=== PATIENT | male | born 1935 | race African-American/Black ===

== ENCOUNTER 2019-01-21 04:58 | Inpatient (IN) | payer OTHER ==
[2019-01-21] VITALS (25 sets, daily range): BP systolic 136–187; BP diastolic 71–105
[~2019-01-21] VITALS: Ht 172.7 cm; Wt 81.4 kg
--- NOTE | 2019-01-21 04:59 | NUR ---
BY EMS TO ROOM 10
--- NOTE | 2019-01-21 05:00 | NUR ---
PT. TO ROOM 10 VIA EMS, C/O SOB X 3 WEEKS. WHEEZES NOTED BILATERALLY. O2 SAT ON RA 87%. SUBSTERNAL RETRACTIONS NOTED. MD AT BEDSIDE. O2 2 LIT/NC APPLIED O2 SAT NOW 94%. BP 199/138 HR 134. RESP. 34. ABG OBTAINED.
--- NOTE | 2019-01-21 05:15 | NUR ---
IV MS, IV LASIX AND IV CARDENE GTT GIVEN PER MD ORDER.
--- NOTE | 2019-01-21 05:20 | NUR ---
PT. PLACED ON BIPAP PER ABG RESULTS.
[2019-01-21] MEDS ORDERED: TRADJENTA5 MG PO (05:26)
[2019-01-21] MEDS ORDERED: METFORMIN850 MG PO (05:26)
[2019-01-21] MEDS ORDERED: EQ ASPIRIN81 MG PO (05:27)
[2019-01-21] MEDS ORDERED: HYDROCHLOROT12.5 M1 PO (05:27)
[2019-01-21] MEDS ORDERED: COZAAR50 MG PO (05:28)
[2019-01-21] MEDS ORDERED: COREG3.125 MG PO (05:28)
[2019-01-21] MEDS ORDERED: ALDOMET250 MG PO (05:29)
--- NOTE | 2019-01-21 05:30 | NUR ---
BP 170/104 HR 118, MD AWARE.
[2019-01-21 05:41] LABS: HEMATOCRIT 38.7 % (39.0-50.0); HEMOGLOBIN 12.2 g/dl (14.0-18.0); IMMATURE GRANULOCYTES 0.6 % (0.0-5.0); MEAN CELL VOLUME 96.5 fL CALC (80.0-100.0); MEAN CORPUSCULAR HGB 30.4 pG CALC (26.0-32.0); MEAN CORPUSCULAR HGB CONC 31.5 g/L CALC (32.0-36.0); NEUT# 12.66 thou/uL (1.82-7.42); RED BLOOD COUNT 4.01 mill/uL (4.70-6.10); RED CELL DISTRI WIDTH 13.3 % (11.5-15.5)
--- NOTE | 2019-01-21 05:45 | NUR ---
BP 155/91 HR 113.
[2019-01-21 06:15] LABS: URINE BILIRUBIN - DIPSTICK NEGATIVE (NEGATIVE); URINE BLOOD DIPSTICK NEGATIVE (NEGATIVE); URINE COLOR YELLOW; URINE GLUCOSE - DIPSTICK NEGATIVE (NEGATIVE); URINE KETONE NEGATIVE (NEGATIVE); URINE LEUK ESTERASE NEGATIVE (NEGATIVE); URINE NITRITE - DIPSTICK NEGATIVE (Negative); URINE PROTEIN - DIPSTICK NEGATIVE (NEG-TRACE); URINE UROBILINOGEN - DIPSTICK 0.2 E.U./dL (0.2)
[2019-01-21 06:20] LABS: ALBUMIN 4.3 g/dL (3.2-5.0); BILIRUBIN, TOTAL 0.6 mg/dL (0.0-1.4); CREATININE 1.8 mg/dL (0.7-1.3); POTASSIUM 4.4 mmol/l (3.5-5.1); TOTAL PROTEIN 7.4 g/dL (6.3-8.2)
--- NOTE | 2019-01-21 06:50 | NUR ---
REPORT REC'D FROM OF GOING NURSE, CARE ASSUMED, PT RESTING ON STRECTHER CURRENTLY ON BI PAP SEE FLOWSHEET FOR SETTINGS, NO S/S OF DISTRESS OR DISCOMFORT NOTED, GUARDS AT BEDSIDE AND SHACKLES IN PLACE EXTREMITY CIRCULATION WNL NO CHAFING OR REDENSS NOTED AT RESTRAINT SITES. BILATERAL AC IV SITES INTACT WITH IVF AND CARDENE INFUSING INTO L AC SITE, SEE INTERVENTIONS FOR B/P. URINAL AT BEDSIDE EMPITED OF 400 ML CLEAR PALE YELLOW URINE, COMFORT MEASURES PROVIDED REOSITIONED FOR COMFORT, AND CALL FATIMA WITHIN REACH, EDUCATED REGARDING ADMISSION AND POC FOR SAID ADMISSION, WILL CONTINUE TO MONITOR
--- NOTE | 2019-01-21 07:01 | NUR ---
BIPAP PLACED STANDBY. PT NOW ON 2L NC.
--- NOTE | 2019-01-21 07:38 | NUR ---
PT OFF BIPAP ON NC2L SEE FLOWSHEET FOR DETAILS, TOELRATING NC W/O INCIDENT, NO SOB OR DISTRESS NOTED, GUARDS REMAIN AT SIDE, IV ABT INFUSINGAND PT INSTRUCTED REGARDING REASON FOR ADMINISTRATION, EXPECTATIONS AND POTENTIAL SIDE EFFECTS, ALL QUESTIONS ANSWERED, WILL CONTINUE TO MONITOR.
--- NOTE | 2019-01-21 08:09 | NUR ---
PT RESTING CONTINUES TO USE URINAL W/O INCIDENT, GUARDS REMAIN AT BEDSIDE, PT COOPERATIVE NO S/S OF DISTRESS CONTINUES TO TOLERATE NC WITHOUT INCIDENT.
--- NOTE | 2019-01-21 08:40 | NUR ---
EMPTIED URINAL OF 400 ML CLEAR YELLOW URINE
--- NOTE | 2019-01-21 08:55 | NUR ---
TO CT VIA STRECTHER WITH 2 NURSES AND TELE ALONG WITH GUARDS.
--- NOTE | 2019-01-21 10:10 | NUR ---
PT TRANSPORTED TO ICU BY ICU STAFF ON TELE
--- NOTE | 2019-01-21 10:15 | NUR ---
PT ADMITTED TO ICU BED 1 FROM ED FOR CP, HTN, SOB. PT TRANSFERRED VIA STRETCHER WITH CARDENE GTT @5MG/HR TO EMS SITE @LAC. 20GTO RAC/SL. PT A&OX3, ABLE TO MAKE NEEDS KNOWN , URINAL AT BEDSIDE, PT DENIES CP AT THIS TIME. PT REMAIN ST ON TELEMETRY ,HR 105. B/P 187/105, SA02@99% ON 2LPM VIA N/C. RESPIRATIONS 26, SHALLOW, EVEN/UNLABORED. LS CLEAR THROUHGOUT. ABDOMEN HARD, DISTENDED, TENDER WHEN PALPATED. PT STATED LBM 01/21/19. PT ORIENTED TO UNIT, ROOM, CALL LIGHT SYSTEM. GUARDS X2 AT BEDSIDE. CALL LIGHT IN REACH. WILL MONITOR.
--- NOTE | 2019-01-21 11:00 | NUR ---
MICHAEL BACA AT BEDSIDE FOR ASSESSMENT AND DAO SIMPSON PLAN OF CARE.
--- NOTE | 2019-01-21 11:15 | NUR ---
PT VOIDED 100ML IN URINAL, BLADDER SCAN PERFORMED, SHOWS >400 ML OP IN BLADDER POST VOID. MICHAEL BACA AWARE.
--- NOTE | 2019-01-21 11:30 | NUR ---
16FR FRANK CATHETER INSERTED USING STERILE TECHNIQUE, WITH 500ML PALE CLEAR YELLOW URINE OP IMMEDIATE RETURN NOTED. PT TOLERATED WELL, SECURED TO L THIGH.
--- NOTE | 2019-01-21 11:45 | NUR ---
RT AT BEDSIDE FOR TX
--- NOTE | 2019-01-21 12:00 | NUR ---
PT REPOSITIONED SELF, LUNCH TRAY SET UP. GUARDSX2 REMAIN AT BEDSIDE.
--- NOTE | 2019-01-21 12:45 | NUR ---
PT REQUESTING SOMETHING FOR INDIGESTION, MICHAEL BACA NOTIFIED OF REQUEST.
--- NOTE | 2019-01-21 13:00 | NUR ---
MARU DORAN FROM DOC CALLED FOR UPDATE, UPDATE GIVEN.
--- NOTE | 2019-01-21 13:25 | NUR ---
DR. BO AND MICHAEL BACA AT BEDSIDE FOR ASSESSMENT AND TO DISCUSS PLAN OF CARE, NEW ORDERS RECIEVED.
--- NOTE | 2019-01-21 14:35 | NUR ---
TRANSPORTED PT FROM ICU BED 1 TO PACU BED 6. PT TOLERATED TRANSFER WELL.
--- NOTE | 2019-01-21 15:02 | NUR ---
INITIATED CARDENE DRIP 2.5MG/HR. B/P 152/90
--- NOTE | 2019-01-21 15:48 | NUR ---
PT RESTING IN BED WITH HOB UP, EYES CLOSED. FRANK REMAINS PATENT DRAINING TO BSD VIA GRAVITY. GUARDS REMAIN AT BEDSIDE. WILL MONITOR.
--- NOTE | 2019-01-21 16:59 | NUR ---
PT ACCU CHECK 284, PT REFUSED INSULIN, STATED " AIN'T NOBOBY GOING TO GIVE ME INSULIN, THE LAST TIME I WAS GIVEN IT I ALMOST ." PT EDUCATED THAT THE COMA WAS HYPOGLYCEMIC, NOT ALLERGIC TO INSULIN AND METFORMIN WAS NOT AN OPTION DUE TO HIS KIDNEY FUNCTION. PT STATED, "I DONT CARE, I AM NOT TAKING ANY INSULIN EVER." DR. BO NOTIFIED OF PT REFUSAL.
--- NOTE | 2019-01-21 17:25 | NUR ---
DIETARY ON UNIT, DINNER TRAY SET UP. PT REFUSED, PORK. DIETARY BRINGING PT TURKEY SANDWICH.
--- NOTE | 2019-01-21 17:40 | NUR ---
LAB AT BEDSIDE FOR BLOOD DRAW.
--- NOTE | 2019-01-21 18:03 | NUR ---
JAVI FROM DIETARY DELIVERED TURKEY SANDWICH. PT SITTING UP IN BED, CONTINUES ON CARDENE GTT, MONIKA REMAINS PATENT, DRAINING TO BSD VIA GRAVITY. PT OFFERS NO COMPLAINTS AT THIS TIME. CALL LIGHT IN REACH. WILL MONITOR.
--- NOTE | 2019-01-21 19:44 | NUR ---
PT AWAKE RESTING IN BED. PT IS PLEASANT AND COOPERATIVE. TWO GUARDS AT BEDSIDE. PT IS CUFFED TO THE BED. ALERT AND ORIENTED X3. RESP EVEN AND UNLABORED. O2 N/C ON AT 2L. PT DENIES ANY DIFFICULTY BREATHING. SKIN IS WARM AND DRY. VSS. PT IS AFEBRILE. TELE ST HR 107. B/P 153/81. O2 SAT 99% ON 2L N/C. LUNGS CLEAR BILAT. ABD IS SOFT AND NONDISTENDED WITH BOWEL SOUNDS PRESENT IN ALL FOUR QUADS. FRANK IS PATENT DRAINING CLEAR PALE URINE. PT HAS NO LOWER EXT EDEMA NOTED. PEDAL PULSES PALPATED BILAT. HEPLOCK PATENT IN RT A.C. NO REDNESS OR TENDERNESS AT SITE. IV SITE IN LEFT A.C. CARDENE GTT AT 5MG OR 50ML/HR. NSS AT KVO. PT DENIES ANY PAIN OR DISCOMFORT. WILL CONTINUE TO CLOSELY MONITOR. CALL FATIMA WITHIN REACH. FREQUENT ROUNDS MADE.
--- NOTE | 2019-01-21 20:30 | NUR ---
DR BO CALLED AND INFORMED PTS ACCUCHECK IS 421 AND PT REFUSES ANY INSULIN COVERAGE. PER DR BO DUE TO PT REFUSING ANY INSULIN GIVE GLYBURIDE 5MG P.O X1 DOSE NOW AND IS AWARE OF SULFA ALLERGY. ORDER RECEIVED WITH VERBAL READ BACK CONFIRMATION AND CHARTED. ORDER FAXED TO . PT INFORMED OF NEW ORDER RECEIVED AND AGREES TO TAKE GLYBURIDE. RESP EVEN AND UNLABORED. PT OFFERS NO COMPLAINTS. IV CARDENE AT 5MG. IV SITE PATENT. MONITOR READING ST HR 108. FREQUENT ROUNDS MADE. TWO GUARDS AT BEDSIDE. CALL FATIMA WITHIN REACH
--- NOTE | 2019-01-21 21:40 | NUR ---
RESTING IN BED TALKING WITH GUARDS. VSS. OFFERS NO COMPLAINTS. CALL FATIMA WITHIN REACH.
--- NOTE | 2019-01-21 22:15 | NUR ---
PT AWAKE RESTING IN BED TALKING TO GUARDS. IV SITE PATENT. CARDENE GTT REMAINS AT 5MG. FRANK IS PATENT. RESP EVEN AND UNLABORED. FREQUENT ROUNDS MADE. CALL FATIMA WITHIN REACH.
--- NOTE | 2019-01-21 23:44 | NUR ---
ACCUCHECK 307. B/P 150/88, HR 101. PT OFFERS NO COMPLAINTS. CALL FATIMA WITHIN REACH.
[2019-01-22] VITALS (21 sets, daily range): BP systolic 115–155; BP diastolic 61–91
--- NOTE | 2019-01-22 01:04 | NUR ---
PT RESTING IN BED WITH EYES CLOSED. O2 N/C ON AT 2L. B/P 122/67, HR 90'S SR. IV CARDENE GTT REMAINS AT 5MG. MONIKA IS PATENT . TWO GUARDS AT BEDSIDE. FREQUENT ROUNDS MADE. CALL FATIMA WITHIN REACH.
--- NOTE | 2019-01-22 01:35 | NUR ---
B/P 115/61, MONITOR READING SR HR 90. CARDENE GTT DECREASED FROM 5MG/HR TO 2.5MG/HR. IV SITE PATENT. PT IS SLEEPING. WILL CONTINUE TO CLOSELY MONITOR. VS SET FOR Q 15MIN. CALL FATIMA WITHIN REACH. FREQUENT ROUNDS MADE.
--- NOTE | 2019-01-22 02:09 | NUR ---
PT RESTING IN BED WITH EYES CLOSED. B/P 131/80, HR 89. MONITOR SR. IV CARDENE GTT REMAINS AT 2.5MG/HR OR 25ML/HR. IV SITE PATENT. OFFERS NO COMPLAINTS. CUFFED TO BED. TWO GUARDS AT BEDSIDE. CALL FATIMA WITHIN REACH.
--- NOTE | 2019-01-22 04:15 | NUR ---
PT RESTING IN BED WITH EYES CLOSED. RESP EVEN AND UNLABORED. O2 AT 2L N/C. NO DISTRESS NOTED. ASSESSMENT UNCHANGED. FRANK IS DRAINING CLEAR PALE YELLOW URINE. MONITOR READING SR HR 80'S. O2 SAT 98%. B/P IS STABLE. IV SITE PATENT. GUARDS AT BEDSIDE AND PT REMAINS CUFFED TO THE BED. CARDENE GTT REMAINS AT 2.5MG/HR WITH NSS AT 10CC/HR. FREQUENT ROUNDS MADE. CALL FATIMA WITHIN REACH.
--- NOTE | 2019-01-22 06:04 | NUR ---
PT AWAKE. B/P 133/78. MONITOR SR HR 88. CARDENE TITRATED OFF AT THIS TIME. NSS AT O. WILL CONTINUE TO CLOSELY MONITOR. CALL FATIMA WITHIN REACH.
--- NOTE | 2019-01-22 07:10 | NUR ---
pt awake in bed; no apparent distress noted; pt offers no complaints; assessment completed at this time; pt alert and oriented; denies pain; no n/v noted; resp even and unlabored; no sob noted; lungs clear, crackles bilat bases; skin color wnl; o2 per nc at 2L; no cough noted; hr reg; weak pedal pulses; no edema noted; sr on monitor; abd soft with bs present; no bm noted per selling underwriter; vargas to gravity draining clear yellow urine; #20 flushed and saline locked to rac; #18 ems site patent to lac with ns infusing at kvo; cardene remains on hold; plan of care/ am meds explained; accucheck 189; insulin refused; correctional officers x2 present at bedside; pt cuffed to bed via left ankle; call light within reach; will continue to monitor
[2019-01-22 07:28] LABS: HEMATOCRIT 34.9 % (39.0-50.0); HEMOGLOBIN 11.7 g/dl (14.0-18.0); MEAN CELL VOLUME 91.6 fL CALC (80.0-100.0); MEAN CORPUSCULAR HGB 30.7 pG CALC (26.0-32.0); MEAN CORPUSCULAR HGB CONC 33.5 g/L CALC (32.0-36.0); RED BLOOD COUNT 3.81 mill/uL (4.70-6.10); RED CELL DISTRI WIDTH 13.2 % (11.5-15.5)
--- NOTE | 2019-01-22 08:00 | NUR ---
awake in bed; offers no complaints; no apparent distress noted; iv patent; no redness or edema noted at site; st on monitor; vargas to gravity; o2 per nc; call light within reach; will continue to monitor
[2019-01-22 08:05] LABS: CREATININE 1.7 mg/dL (0.7-1.3); POTASSIUM 4.2 mmol/l (3.5-5.1)
--- NOTE | 2019-01-22 08:47 | NUR ---
Dr Ortiz present at bedside to assess pt and discuss plan of care
--- NOTE | 2019-01-22 10:20 | NUR ---
awake in bed; conversing with [facility] staff; no apparent distress noted; pt offers complaints; iv patent with ns infusing at kvo; vargas to gravity; st on monitor; pt offers no complaints; call light within reach; will continue to monitor
--- NOTE | 2019-01-22 11:50 | NUR ---
report called to Salome Villasenor LPN; pt to transfer to med surg 278; correctional officers x2 at bedside
--- NOTE | 2019-01-22 11:55 | NUR ---
pt transferred to med surg 278 via bed in stable condition; bedside update provided to Salome Villasenor RN
--- NOTE | 2019-01-22 11:56 | NUR ---
PT ARRIVED TO MED/SURG ROOM 278 IN STABLE CONDITION VIA HOSPITAL BED ACCOMPANIED BY NILAMRN AND X2 GUARDS FROM BRIANDA CORROECTIONAL,LEFT ANKLE SHACKLED TO BED;PT A&O X3,ORIENTED TO ROOM AND CALL LIGHT SYSTEM;VS AND WT TO BE OBTAINED BY TESS COBB;ASSESSMENT COMPLETED;RESPIRATIONS CLEAR WITH CRACKLES NOTED TO BILATERAL BASES,NON-PRODUCTIVE COUGH;O2 @ 2L VIA NC,PT IS NOT HOME OXYGEN DEPENDENT;ABDOMEN DISTENDED/SOFT ON PALPATION AND ACTIVE IN ALL 4 QUADRANTS,LAST BM 01/21/19;WEAK PEDAL PULSES WITH TRACE EDEMA NOTED,ENCOURAGED ELEVATION;FRANK CATHETER PATENT DRAINING AYALA/CLEAR URINE TO GRAVITY WITH LEG STRAP IN PLACE;ABRASION NOTED TO RIGHT HUYNH,JAMIE;#22G TO LEFT HAND & EMS #18G TO LAC FLUSHED AND PATENT,SITE APPEARS HEALTHY;TELE MONITORING PLACED ON PT AT THIS TIME;PT DENIES ANY ADDITIONAL NEEDS AT THIS TIME AND IS ENCOURAGED TO CALL FOR ASSISTANCE IF NEEED;CALL LIGHT IN REACH;WILL CONTINUE TO MONITOR
--- NOTE | 2019-01-22 12:20 | NUR ---
awake in bed; guards x2 at bedsiide; no apparent distress noted; pt offers no complaints; iv intact and saline locked; #18 ems site removed from lac with catheter tip intact; vargas to gravity emptied for 850cc clear yellow urine; o2 per nc; call light within reach; will continue to monitor
--- NOTE | 2019-01-22 14:44 | NUR ---
ECHO AT BEDSIDE
--- NOTE | 2019-01-22 14:49 | NUR ---
DNR BRACLET AND STICKER APPLIED AT THIS TIME.
--- NOTE | 2019-01-22 15:40 | NUR ---
PT RESTING IN SEMI FOWLERS POSITION WITH X2 GUARDS AT BEDSIDE;LEFT ANKLE REMAINS SHACKLED TO THE BED;RESPIRATIONS EVEN AND UNLABORED ON O2 @ 2L VIA NC;PT DENIES ANY CURRENT PAIN OR DISCOMFORTS;TELE MONITORING IN PLACE;FRANK CATHETER PATENT;PT ENCOURAGED TO CALL FOR ASSISTANCE IF NEEDED;CALL LIGHT IN REACH;WILL CONTINUE TO MONITOR
--- NOTE | 2019-01-22 16:54 | NUR ---
PT ACCUCHECK 411, PT REFUSED NOVOLOG PER ORDER STATING "I DONT TAKE INSULIN";ATTEMPTS TO EDUCATE PT ON THE IMPORTANCE OF INSULIN FOR ELEVATED BLOOD SUGAR AND PT STILL REFUSES. NOTIFIED,NO NEW ORDERS AT THIS TIME;WILL CONTINUE TO MONITOR
--- NOTE | 2019-01-22 19:00 | NUR ---
RECEIVED REPORT FROM NURSE ALEJO, PATIENT RESTING IN BED WATCHING TV, DENIES PAIN OR DISCOMFORTS AT THIS TIME, CALL LIGHT WITHIN REACH.
--- NOTE | 2019-01-22 20:00 | NUR ---
PATIENT ALERT AND ORINETED X 3 ABLE TO MAKE NEEDS KNOWN, WITH SALINE LOCK ON LEFT HAND G22 PATENT FLUUSHES WELL, REMAINS ON TELE ST104, WITH FRANK CATHETER DRAINING YELLOW COLORED URINE, X 2 GUARDS PRESENT, EVEN UNLABORED BREATHING AT THIS TIME.CALL LIGHT AT REACH.
--- NOTE | 2019-01-23 | NUR ---
PATIENT APPEARS TO RESTING WITH EYES CLOSED WITH EVEN UNLABORED BREATHING CALL LIGHT AT REACH
--- NOTE | 2019-01-23 04:02 | NUR ---
PATIENT RESTING IN BED WITH EYES CLOSEDL, WITH EVEN UNLABORED BREATHING, X2 GUARDS ON BEDSIDE, CALL LIGHT ATREACH.
[2019-01-23 04:30] VITALS: BP 140/91
[2019-01-23 04:56] LABS: HEMATOCRIT 35.3 % (39.0-50.0); HEMOGLOBIN 11.5 g/dl (14.0-18.0); MEAN CELL VOLUME 93.6 fL CALC (80.0-100.0); MEAN CORPUSCULAR HGB 30.5 pG CALC (26.0-32.0); MEAN CORPUSCULAR HGB CONC 32.6 g/L CALC (32.0-36.0); RED BLOOD COUNT 3.77 mill/uL (4.70-6.10); RED CELL DISTRI WIDTH 13.1 % (11.5-15.5)
[2019-01-23 05:12] LABS: CREATININE 1.8 mg/dL (0.7-1.3); POTASSIUM 4.3 mmol/l (3.5-5.1)
--- NOTE | 2019-01-23 07:10 | NUR ---
REPORT RECEIVED FROM MARU RAMOS;PT RESTING IN SEMI FOWLERS POSITION WITH X2 GUARDS AT BEDSIDE;INTRODUCED SELF TO PT AND POC DISCUSSED;RESPIRATIONS EVEN AND UNLABORED ON O2 @ 2L VIA NC;PT DENIES ANY CURRENT PAIN OR NEEDS;TELE MONITORING IN PLACE;ENCOURAGED PT TO CALL FOR ASSISTANCE IF NEEDED;CALL LIGHT IN REACH;WILL CONTINUE TO MONITOR
[2019-01-23 07:55] VITALS: BP 128/81
--- NOTE | 2019-01-23 08:00 | NUR ---
PT RESTING IN SEMI FOWLERS POSITION,A&O X3 WITH X2 GUARDS AT BEDSIDE AND LEFT ANKLE SHACKLED TO THE BED;VS OBTAINED AND ASSESSMENT COMPLETED;PT DENIES ANY ANY CURRENT PAIN OR DISCOMFORTS,PAIN SCALE AND REPORTING EDUCATED;RESPIRATIONS EVEN AND UNLABORED ON O2 @ 2L VIA NC;ABDOMEN DISTENDED/SOFT ON PALPATION AND ACTIVE IN ALL 4 QUADRANTS;FRANK CATHETER PATENT DRAINING YELLOW/CLEAR URINE,STAT LOCK IN PLACE;STRONG PEDAL PULSES;ABRASION NOTED TO RIGHT LEG,MMI TEACHER; TELE MONITORING IN PLACE;#22G TO LEFT HAND FLUSHED AND PATENT,SITE APPEARS HEALTHY;ACCUCHECK 175, PT REFUSES INSULIN ADMINISTRATION;PT DENIES ANY ADDITIONAL NEEDS AT THIS TIME AND IS ENCOURAGED TO CALL FOR ASSISTANCE IF NEEDED;CALL LIGHT IN REACH;WILL CONTINUE TO MONITOR
--- NOTE | 2019-01-23 08:40 | NUR ---
AT BEDSIDE DISCUSSING POC.
--- NOTE | 2019-01-23 10:05 | NUR ---
PT MEDICATED WITH SUPPOSITORY AND MYLANTA.
[2019-01-23 10:30] VITALS: BP 144/93
--- NOTE | 2019-01-23 11:00 | NUR ---
PT BLOOD SUGAR 193. PT REFUSES SLIDING SCALE NOVOLOG.
--- NOTE | 2019-01-23 11:45 | NUR ---
PT OXYGEN REMOVED AND PT AMBULATED THE HALLWAY WITH ASSISTANCE BY WALKER AND WRITTER;RESPIRATIONS REMAIN UNLABORED AND O2 SATS STAYED ABOVE 90%;PT DENIES ANY CURRENT PAIN OR DISCOMFORTS;TELE MONITORING IN PLACE;PT ASSISTED BACK INTO BED AND MEAL TRAY PROVIDED;X2 GUARDS STAYED AT SIDE FOR THE DURATION OF THE WALK TEST;PT DENIES ANY ADDITIONAL NEEDS AND IS ENCOURAGED TO CALL FOR ASSISTANCE IF NEEDED;CALL LIGHT IN REACH;WILL CONTINUE TO MONITOR
--- NOTE | 2019-01-23 12:48 | NUR ---
PT REPORTS FEELING SOB;O2 SATS 95% ON RA;ENCOURAGED PURSED LIP BREATHING TECHNIQUE;PT REMAINS STABLE AT THIS TIME;ENCOURAGED TO CALL FOR ASSISTANCE IF NEEDED;CALL LIGHT WITH IN REACH AND X2 GUARDS REMAIN AT BEDSIDE;WILL CONTINUE TO MONITOR
--- NOTE | 2019-01-23 13:20 | NUR ---
PT REPORTS SOB;O2 SATS READ 98% ON RA;PT REPOSITIONED INTO RECLINER FOR COMFORT;X2 GUARDS REMAIN AT BEDSIDE;TELE MONITORING IN PLACE;CALL LIGHT IN REACH;WILL CONTINUE TO MONITOR
[2019-01-23 14:35] VITALS: BP 141/88
--- NOTE | 2019-01-23 15:40 | NUR ---
PT OOB RESTING IN RECLINER WITH X2 GUARDS AT BEDSIDE;RESPIRATIONS EVEN AND UNLABORED ON RA, O2 SATS RE-CHECKED AT 98%;PT DENIES ANY NEEDS;IV SITE TO LEFT HAND PATENT;TELE MONITORING IN PLACE;FRANK CATHETER HANGING TO GRAVITY WITH EASE;ASSESSMENT REMAINS UNCHANGED AT THIS TIME;ENCOURAGED TO CALL FOR ASSISTANCE IF NEEDED;CALL LIGHT IN REACH;WILL CONTINUE TO MONITOR
--- NOTE | 2019-01-23 17:06 | NUR ---
PT CURRENT BLOOD SUGAR 265, PT REFUSES SLIDING SCALE INSULIN ORDERED.
--- NOTE | 2019-01-23 19:26 | NUR ---
REPORT RECEIVED FROM PREVIOUS RN. PT A/O COMFORTABLE WITH NO COMPLAINTS SITTING UP IN CHAIR WATCHING TV. 12HR SHIFT PLAN DISCUSSED AND NO PAIN OR QUESTIONS VERBALIZED. REPEAT DEMONSTRATION FOR CALL LIGHT.
[2019-01-23 19:40] VITALS: BP 164/98
[2019-01-23 23:35] VITALS: BP 162/96
--- NOTE | 2019-01-24 00:15 | NUR ---
REMAINS UP IN CHAIR AFTER SHOWERING AT . NO COMPLAINTS OF PAIN OR NEEDS AT THIS TIME. VS REMAIN STABLE ON TELE SR 78.
[2019-01-24 04:01] VITALS: BP 153/97
[2019-01-24 04:34] VITALS: BP 156/82
--- NOTE | 2019-01-24 04:41 | NUR ---
RESTING IN BED WITH EYES CLOSED FACE RELAXED. EASILY AROUSED WITH INTERVENTIONS. SOME HTN NOTED WITH HISTORY. REMAINS STABLE IN SR 90
--- NOTE | 2019-01-24 07:00 | NUR ---
RECIEVED REPORT FROM NIGHT NURSE. PT RESTING QUIETLY IN BED WATCHING TV. GAURDS AT BEDSIDE. NO NEEDS AT THIS TIME. CALL FATIMA IN REACH. WILL CONTINUE TO MONITOR.
--- NOTE | 2019-01-24 07:50 | NUR ---
PT WATCHING TV. MONICA AT BEDSIDE. PT COMPLAINING OF RIGHTSIDED CHEST PAIN. VS, EKG AND TROP OBTAINED. ASSESMENT COMPLETED AT THIS TIME. MEDICAted per order no other needs at this time. will continue to monitor.
[2019-01-24 11:02] VITALS: BP 135/87
[2019-01-24] MEDS ORDERED: GLYBURIDE5 M1 PO (11:12)
[2019-01-24] MEDS ORDERED: LASIX 40 MG TAB40 MG PO (11:12)
[2019-01-24] MEDS ORDERED: MEDDOSEPAK PO (11:12)
[2019-01-24] MEDS ORDERED: TAMSULOSIN HCL0.4 MG PO (11:12)
[2019-01-24] MEDS ORDERED: VANTIN200 M1 PO (11:12)
--- NOTE | 2019-01-24 12:00 | NUR ---
PT AWAITING DISCHARGE. NO NEEDS AT THIS TIME. CALL FATIMA IN REACH. WILL CONTINUE TO MONITOR.
--- NOTE | 2019-01-24 12:40 | NUR ---
FRANK CATH REMOVED. PT ON THE TOILET A THIS TIME TO TRY AND VOID. IV REMOVED. WILL CONTINUE TO MONITOR.
--- NOTE | 2019-01-24 12:58 | NUR ---
PT SAYS HE VOIDED AND STARTS TO LEAVE WITH WALKER AND GAURDS IN TOW. WHEN ASKED FOR A WHEELCHAIR PT ACCEPTS. PT TAKEN DOWN VIA WHEELCHAIR IN STABLE CONDITION WITH STAFF AND GAURDS.
== END 2019-01-24 12:56 | disposition designated cancer center or children's hospital (05) | DRG 291 ==
LOC: ED 04:58 → ED-I 05:06 → ED 05:06 → ED-I 07:03 → ED 07:16 → ED-I 07:17 → MS2 07:17 → ICU 10:21 → MS2 01-22 11:55
PROVIDERS: Emergency Medicine; ADMIT Internal Medicine; ATTEND Internal Medicine
PROC: 5A09357 Assistance with Respiratory Ventilation, Less than 24 Consecutive Hours, Continuous Positive Airway Pressure (ICD-10-PCS; principal; 2019-01-21)
PROC: 0T9B70Z Drainage of Bladder with Drainage Device, Via Natural or Artificial Opening (ICD-10-PCS; 2019-01-21)
DX: I13.0 Hypertensive heart and chronic kidney disease with heart failure and stage 1 through stage 4 chronic kidney disease, or unspecified chronic kidney disease (principal); J18.9 Pneumonia, unspecified organism; J96.01 Acute respiratory failure with hypoxia; J44.0 Chronic obstructive pulmonary disease with (acute) lower respiratory infection; N13.8 Other obstructive and reflux uropathy; N17.9 Acute kidney failure, unspecified; I16.0 Hypertensive urgency; N18.3 Chronic kidney disease, stage 3 (moderate); E11.22 Type 2 diabetes mellitus with diabetic chronic kidney disease; I25.10 Atherosclerotic heart disease of native coronary artery without angina pectoris; I50.9 Heart failure, unspecified; N40.1 Benign prostatic hyperplasia with lower urinary tract symptoms; R33.8 Other retention of urine; K59.00 Constipation, unspecified; I25.2 Old myocardial infarction; T50.2X6A Underdosing of carbonic-anhydrase inhibitors, benzothiadiazides and other diuretics, initial encounter; Z91.128 Patient's intentional underdosing of medication regimen for other reason; Z79.84 Long term (current) use of oral hypoglycemic drugs; E11.65 Type 2 diabetes mellitus with hyperglycemia

== ENCOUNTER 2019-03-13 14:27 | Observation (INO) | payer OTHER ==
[~2019-03-13] VITALS: Ht 172.7 cm; Wt 84.0 kg
[~2019-03-13 14:27] MED LIST: ALDOMET250 MG PO; COREG3.125 MG PO; COZAAR50 MG PO; EQ ASPIRIN81 MG PO; GLYBURIDE5 M1 PO; HYDROCHLOROT12.5 M1 PO; LASIX 40 MG TAB40 MG PO; MEDDOSEPAK PO; METFORMIN850 MG PO; TAMSULOSIN HCL0.4 MG PO; TRADJENTA5 MG PO; VANTIN200 M1 PO
--- NOTE | 2019-03-13 14:28 | NUR ---
PT TO ROOM 14 VIA EMS FOR BEDSIDE TRIAGE
[2019-03-13] MEDS ORDERED: METFORMIN850 MG PO (15:06)
[2019-03-13] MEDS ORDERED: HYDROCHLOROT25 MG PO (15:06)
--- NOTE | 2019-03-13 15:07 | NUR ---
PT STATES HE HAS BEEN SOB SINCE HE WQAS HERE IN JANUARY, NO VISIBLE DISTRESS NTOED AND O2 SATS 97% ON ROOM AIR, TELE READING SR RATE IN THE 80'S WITH BP ELEVATED AT 175/102, PT UNSURE OF MEDICAL DX'S PER HISTORY OBTAINED FROM DCF PT HAS HISTORY OF COPD AND CHF.
[2019-03-13 15:11] LABS: HEMATOCRIT 39.9 % (39.0-50.0); HEMOGLOBIN 12.7 g/dl (14.0-18.0); IMMATURE GRANULOCYTES 0.3 % (0.0-5.0); MEAN CELL VOLUME 91.5 fL CALC (80.0-100.0); MEAN CORPUSCULAR HGB 29.1 pG CALC (26.0-32.0); MEAN CORPUSCULAR HGB CONC 31.8 g/L CALC (32.0-36.0); NEUT# 4.59 thou/uL (1.82-7.42); RED BLOOD COUNT 4.36 mill/uL (4.70-6.10)
[2019-03-13 15:15] LABS: URINE BILIRUBIN - DIPSTICK NEGATIVE (NEGATIVE); URINE BLOOD DIPSTICK NEGATIVE (NEGATIVE); URINE COLOR YELLOW; URINE GLUCOSE - DIPSTICK NEGATIVE (NEGATIVE); URINE KETONE NEGATIVE (NEGATIVE); URINE LEUK ESTERASE NEGATIVE (NEGATIVE); URINE NITRITE - DIPSTICK NEGATIVE (Negative); URINE PH 6.5 (4.5-8.0); URINE PROTEIN - DIPSTICK NEGATIVE (NEG-TRACE); URINE SPECIFIC GRAVITY 1.025; URINE UROBILINOGEN - DIPSTICK 0.2 E.U./dL (0.2)
[2019-03-13 15:33] LABS: ALBUMIN 4.3 g/dL (3.2-5.0); BILIRUBIN, TOTAL 0.8 mg/dL (0.0-1.4); CREATININE 1.5 mg/dL (0.7-1.3); POTASSIUM 4.3 mmol/l (3.5-5.1); TOTAL PROTEIN 7.9 g/dL (6.3-8.2)
--- NOTE | 2019-03-13 16:05 | NUR ---
BP SLOWLY IMPROVING, OFFERS NO NEW COMPLAINTS, CONTINUES TO VOID MODERATE AMOUNTS CLEAR YELLOW URINE, GUARDS REMAIN AT BEDSIDE
--- NOTE | 2019-03-13 17:10 | NUR ---
BP REMAINS IMPROVED, CONTINUES TO VOID STATES BREATHIN AT LITTLWE EASIRE TOLERATING IV ABT W/O INCIDENT, GOOD URINE OUTPUT SINCE LASIX IV
--- NOTE | 2019-03-13 18:02 | NUR ---
PT ARRIVED TO MED/SURG ROOM 282 IN STABLE CONDITION VIA WHEELCHAIR ACCOMPANIED BY MARU SHELBY AND X2 GUARDS;PT AMBULATED WITH A WEAK GAIT AND 1 PERSON ASSIST TO STANDING SCALE AND BEDSIDE;WT AND VS OBTAINED;PT REPORTS INCREASED SOB X 1 MONTH;ASSESSMENT COMPLETED;RESPIRATIONS SHALLOW ON RA,DIMINISHED LUNG SOUNDS;ABDOMEN SOFT ON PALPATION AND ACTIVE IN ALL 4 QUADRANTS,LAST BM 03/13/19;+2 EDEMA NOTED TO BLE, ENCOURAGED ELEVATION;WEAK PEDAL PULSES;SKIN INTACT;TELE MONITORING IN PLACE;#20G TO LAC FLUSHED AND PATENT,SITE APPEARS HEALTHY;PT DENIES ANY ADDITIONAL NEEDS AT THIS TIME AND IS ENCOURAGED TO CALL FOR ASSISTANCE IF NEEDED;FALL PRECAUTIONS IN PLACE WITH CALL LIGHT IN REACH;WILL CONTINUE TO MONITOR
--- NOTE | 2019-03-13 18:10 | NUR ---
URINE OUTPUT IN ER 1200 ML TOTAL, PT TRANSPORTED TO MED SURG VIA WHEELCHAIR, ALL BELONINGS SENT WITH PT AND GUARDS AT SIDE DURING TRANSPORT.
[2019-03-13 18:12] VITALS: BP 151/87
--- NOTE | 2019-03-13 18:19 | NUR ---
PT REPORTS NON-RADIATING LEFT SIDED CHEST PAIN;VS OBTAINED AND HOANG LARSON NOTIFIED AND NEW ORDERS RECEIVED.
--- NOTE | 2019-03-13 18:24 | NUR ---
RT OSCAR AT BEDSIDE OBTAINING EKG.
[2019-03-13 21:40] VITALS: BP 117/80
[2019-03-14 00:53] VITALS: BP 152/82
[2019-03-14 05:30] VITALS: BP 165/96
[2019-03-14 05:49] LABS: HEMATOCRIT 38.9 % (39.0-50.0); HEMOGLOBIN 12.4 g/dl (14.0-18.0); IMMATURE GRANULOCYTES 0.2 % (0.0-5.0); MEAN CELL VOLUME 91.1 fL CALC (80.0-100.0); MEAN CORPUSCULAR HGB CONC 31.9 g/L CALC (32.0-36.0); NEUT# 2.75 thou/uL (1.82-7.42); RED BLOOD COUNT 4.27 mill/uL (4.70-6.10); RED CELL DISTRI WIDTH 13.1 % (11.5-15.5)
[2019-03-14 06:06] LABS: CREATININE 1.6 mg/dL (0.7-1.3); MAGNESIUM 1.7 mg/dL (1.6-2.3); POTASSIUM 3.9 mmol/l (3.5-5.1)
--- NOTE | 2019-03-14 07:05 | NUR ---
REPORT RECEIVED FROM ROBRN;PT RESTING IN SEMI FOWLERS POSITION WITH X2 GUARDS AT BEDSIDE AND RIGHT ANKLE SHACKLED TO BED;INTRODUCED SELF TO PT AND POC DISCUSSED;RESPIRATIONS EVEN AND UNLABORED ON RA;PT DENIES ANY CURRENT PAIN OR DISCOMFORTS;TELE MONITORING IN PLACE;PT ENCOURAGED TO CALL FOR ASSISTANCE IF NEEDED;FALL PRECAUTIONS IN PLACE WITH CALL LIGHT IN REACH;WILL CONTINUE TO MONITOR
[2019-03-14 08:49] VITALS: BP 160/83
--- NOTE | 2019-03-14 08:50 | NUR ---
PT RESTING IN SEMI FOWLERS POSITION WITH X2 GUARDS AT BEDSIDE,A&O X4;VS OBTAINED AND ASSESSMENT COMPLETED;PT DENIES ANY CURRENT PAIN OR DISCOMFORTS,PAIN SCALE AND REPORTING EDUCATED;PT REPORTS FRQUENT URINATION SINCE LASIX ADMINISTRATION;RESPIRATIONS SHALLOW ON RA,CLEAR/DIMINISHED LUNG SOUNDS NOTED;ABDOMEN SOFT ON PALPATION AND ACTIVE IN ALL 4 QUADRANTS;WEAK PEDAL PULSES WITH +1 EDEMA NOTED TO BLE, DECREASED SOME SINCE YESTERDAY;SKIN INTACT;TELE MONITORING IN PLACE;#20G TO LAC FLUSHED AND PATENT,SITE APPEARS HEALTHY;ACCUCHECK 143;PT DENIES ANY ADDITIONAL NEEDS AT THIS TIME AND IS ENCOURAGED TO CALL FOR ASSISTANCE IF NEEDED;CALL LIGHT IN REACH;WILL CONTINUE TO MONITOR
--- NOTE | 2019-03-14 11:07 | NUR ---
RETURN CALL PLACED TO [facility],AWAITING CALL BACK.
[2019-03-14 11:13] VITALS: BP 163/92
--- NOTE | 2019-03-14 11:21 | NUR ---
NURSE LOCKHART UPDATED ON PT POC.
--- NOTE | 2019-03-14 11:55 | NUR ---
PT RESTING AT BEDSIDE WITH X2 GUARDS AT SIDE EATING LUNCH;RESPIRATIONS EVEN AND UNLABORED ON RA;PT DENIES ANY CURRENT PAIN OR DISCOMFORTS;TELE MONITORING IN PLACE;ASSESSMENT REMAINS UNCHANGED AT THIS TIME;ENCOURAGED TO CALL FOR ASSISTANCE IF NEEDED;CALL LIGHT IN REACH;WILL CONTINUE TO MONITOR
--- NOTE | 2019-03-14 12:16 | NUR ---
AND REMIGIO GALLOWAY,ANRP AT BEDSIDE DISCUSSING POC INCLUDING PLANS TO D/C,PT VERBALIZES UNDERSTANDING.
--- NOTE | 2019-03-14 12:40 | NUR ---
LAB AT BEDSIDE
--- NOTE | 2019-03-14 16:15 | NUR ---
PT RESTING IN SEMI FOWLERS POSITION WITH X2 GUARDS AT BEDSIDE AND RIGHT ANKLE SHACKLED TO BED;RESPIRATIONS EVEN AND UNLABORED ON RA;PT DENIES ANY CURRENT PAIN OR DISCOMFORTS;TELE MONITORING IN PLACE;IV SITE TO LAC PATENT;250CC OF CLEAR/YELLOW URINE EMPTIED FROM URINAL;AWAITING D/C ORDER TO TRANSPORT PT BACK TO [facility];PT DENIES ANY ADDITIONAL NEEDS AND IS ENCOURAGED TO CALL FOR ASSISTANCE IF NEEDED;CALL LIGHT IN REACH;WILL CONTINUE TO MONITOR
[2019-03-14 16:39] VITALS: BP 143/75
[2019-03-14] MEDS ORDERED: TAMSULOSIN HCL0.4 MG PO (16:42)
[2019-03-14] MEDS ORDERED: GLYBURIDE5 M1 PO (16:42)
[2019-03-14] MEDS ORDERED: LASIX 40 MG TAB40 MG PO (16:42)
--- NOTE | 2019-03-14 17:30 | NUR ---
ALL DISCHARGE INSTRUCTIONS PROVIDED AT THIS TIME;PT INSTRUCTED ON MEDICATION CHANGE TO LASIX 40MG BID FOR 5 DAYS AND TO BE WEIGHED DAILY,PT VERBALIZES UNDERSTANDING;DISCHARGE PACKET AND RX FOR LASIX PROVIDED TO [facility] GUARDS;IV SITE REMOVED WITH CATHETER INTACT AND TELE MONITORING D/C;PT DENIES ANY ADDITIONAL NEEDS AT THIS TIME;WHEELCHAIR TO BE PROVIDED FOR D/C;AWAITING TRANSPORTATION FOR DISCHARGE
--- NOTE | 2019-03-14 18:45 | NUR ---
Discharge instructions given. Patient verbalizes understanding of same. [facility]. All belongings sent with pt. PT TRANSPORTED TO [facility] FOR D/C HOME IN STABLE CONDITION VIA WHEELCHAIR ACCOMPANIED BY [facility] STAFF.
== END 2019-03-14 18:45 | disposition designated cancer center or children's hospital (05) | DRG 291 ==
LOC: ED 14:27 → ED-I 15:18 → ED 16:48 → MS2 16:49
PROVIDERS: ADMIT Internal Medicine; ATTEND Internal Medicine
DX: I13.0 Hypertensive heart and chronic kidney disease with heart failure and stage 1 through stage 4 chronic kidney disease, or unspecified chronic kidney disease (principal); J96.01 Acute respiratory failure with hypoxia; I50.9 Heart failure, unspecified; E11.22 Type 2 diabetes mellitus with diabetic chronic kidney disease; N18.3 Chronic kidney disease, stage 3 (moderate); I16.0 Hypertensive urgency; J44.9 Chronic obstructive pulmonary disease, unspecified; I25.2 Old myocardial infarction; Z79.84 Long term (current) use of oral hypoglycemic drugs
CPT/HCPCS: G0378

== ENCOUNTER 2019-03-21 11:28 | Inpatient (IN) | payer OTHER ==
[~2019-03-21] VITALS: Ht 172.7 cm; Wt 84.6 kg
[~2019-03-21 11:28] MED LIST changes: +HYDROCHLOROT25 MG PO
[2019-03-21 12:02] LABS: HEMATOCRIT 38.5 % (39.0-50.0); HEMOGLOBIN 12.1 g/dl (14.0-18.0); IMMATURE GRANULOCYTES 0.2 % (0.0-5.0); MEAN CELL VOLUME 92.8 fL CALC (80.0-100.0); MEAN CORPUSCULAR HGB 29.2 pG CALC (26.0-32.0); MEAN CORPUSCULAR HGB CONC 31.4 g/L CALC (32.0-36.0); NEUT# 2.81 thou/uL (1.82-7.42); RED BLOOD COUNT 4.15 mill/uL (4.70-6.10); RED CELL DISTRI WIDTH 12.9 % (11.5-15.5)
[2019-03-21 12:27] LABS: BILIRUBIN, TOTAL 0.5 mg/dL (0.0-1.4); TOTAL PROTEIN 7.4 g/dL (6.3-8.2)
[2019-03-21 12:28] LABS: CREATININE 3.2 mg/dL (0.7-1.3)
[2019-03-21] MEDS ORDERED: COZAAR50 MG PO (13:21)
[2019-03-21] MEDS ORDERED: KLOR-CON SPRIN10 MEQ PO (13:23)
[2019-03-21 14:44] LABS: URINE BILIRUBIN - DIPSTICK NEGATIVE (NEGATIVE); URINE BLOOD DIPSTICK LARGE (NEGATIVE); URINE GLUCOSE - DIPSTICK NEGATIVE (NEGATIVE); URINE KETONE NEGATIVE (NEGATIVE); URINE NITRITE - DIPSTICK NEGATIVE (Negative); URINE PROTEIN - DIPSTICK 30 mg/dL (NEG-TRACE); URINE SPECIFIC GRAVITY 1.025; URINE UROBILINOGEN - DIPSTICK 0.2 E.U./dL (0.2)
[2019-03-21 14:49] LABS: URINE COLOR AMBER; URINE LEUK ESTERASE MODERATE (NEGATIVE)
[2019-03-21 14:51] LABS: URINE RBC 50-100 RBC/hpf (0-5)
[2019-03-21 20:55] VITALS: BP 168/83
[2019-03-22] VITALS (8 sets, daily range): BP systolic 159–198; BP diastolic 81–96
[2019-03-22 05:34] LABS: HEMATOCRIT 35.1 % (39.0-50.0); HEMOGLOBIN 11.1 g/dl (14.0-18.0); MEAN CELL VOLUME 91.2 fL CALC (80.0-100.0); MEAN CORPUSCULAR HGB 28.8 pG CALC (26.0-32.0); MEAN CORPUSCULAR HGB CONC 31.6 g/L CALC (32.0-36.0); RED BLOOD COUNT 3.85 mill/uL (4.70-6.10); RED CELL DISTRI WIDTH 12.8 % (11.5-15.5)
[2019-03-22 06:04] LABS: CREATININE 2.8 mg/dL (0.7-1.3); POTASSIUM 3.9 mmol/l (3.5-5.1)
[2019-03-22 14:01] LABS: MAGNESIUM 1.9 mg/dL (1.6-2.3)
[2019-03-23 03:25] VITALS: BP 177/86
[2019-03-23 05:17] LABS: HEMATOCRIT 35.7 % (39.0-50.0); HEMOGLOBIN 11.1 g/dl (14.0-18.0); IMMATURE GRANULOCYTES 0.3 % (0.0-5.0); MEAN CELL VOLUME 92.5 fL CALC (80.0-100.0); MEAN CORPUSCULAR HGB 28.8 pG CALC (26.0-32.0); MEAN CORPUSCULAR HGB CONC 31.1 g/L CALC (32.0-36.0); NEUT# 2.72 thou/uL (1.82-7.42); RED BLOOD COUNT 3.86 mill/uL (4.70-6.10); RED CELL DISTRI WIDTH 12.9 % (11.5-15.5)
[2019-03-23 05:36] LABS: ALBUMIN 3.6 g/dL (3.2-5.0); CREATININE 2.1 mg/dL (0.7-1.3); POTASSIUM 3.9 mmol/l (3.5-5.1)
[2019-03-23 07:20] VITALS: BP 169/86
[2019-03-23 11:01] VITALS: BP 168/91
[2019-03-23 15:24] VITALS: BP 167/92
[2019-03-23 19:20] VITALS: BP 200/106
[2019-03-23 21:30] VITALS: BP 148/84
[2019-03-24 04:03] VITALS: BP 160/90
[2019-03-24 06:11] LABS: HEMATOCRIT 35.1 % (39.0-50.0); HEMOGLOBIN 10.8 g/dl (14.0-18.0); IMMATURE GRANULOCYTES 0.3 % (0.0-5.0); MEAN CELL VOLUME 92.9 fL CALC (80.0-100.0); MEAN CORPUSCULAR HGB 28.6 pG CALC (26.0-32.0); MEAN CORPUSCULAR HGB CONC 30.8 g/L CALC (32.0-36.0); NEUT# 1.98 thou/uL (1.82-7.42); RED BLOOD COUNT 3.78 mill/uL (4.70-6.10); RED CELL DISTRI WIDTH 12.9 % (11.5-15.5)
[2019-03-24 06:54] LABS: CREATININE 1.9 mg/dL (0.7-1.3); POTASSIUM 4.1 mmol/l (3.5-5.1)
[2019-03-24 07:34] VITALS: BP 184/98
[2019-03-24 10:09] VITALS: BP 178/93
[2019-03-24 10:51] VITALS: BP 191/85
[2019-03-24 12:49] VITALS: BP 137/66
[2019-03-24] MEDS ORDERED: AMLODIPINE BESYL5 MG PO (13:46)
[2019-03-24] MEDS ORDERED: GABAPENTIN100 MG PO (13:46)
[2019-03-24] MEDS ORDERED: TAMSULOSIN HCL0.4 MG PO (13:46)
[2019-03-24] MEDS ORDERED: DITROPAN5 MG/TA1 PO (13:46)
[2019-03-24] MEDS ORDERED: LASIX 40 MG TAB40 MG PO (13:46)
[2019-03-24] MEDS ORDERED: GLIPIZIDE5 M2 PO (13:46)
== END 2019-03-24 15:25 | DRG 684 ==
LOC: ED 11:28 → ED-I 12:02 → ED 15:19 → ED-I 15:20 → MS2 17:07
PROVIDERS: Emergency Medicine; Internal Medicine Nephrology; Nurse Practitioner Family; ADMIT Internal Medicine; ATTEND Internal Medicine
DX: N17.9 Acute kidney failure, unspecified (principal); I12.9 Hypertensive chronic kidney disease with stage 1 through stage 4 chronic kidney disease, or unspecified chronic kidney disease; E11.22 Type 2 diabetes mellitus with diabetic chronic kidney disease; N18.3 Chronic kidney disease, stage 3 (moderate); I16.0 Hypertensive urgency; N40.1 Benign prostatic hyperplasia with lower urinary tract symptoms; R33.8 Other retention of urine; N32.89 Other specified disorders of bladder; E11.40 Type 2 diabetes mellitus with diabetic neuropathy, unspecified; J43.9 Emphysema, unspecified; E86.9 Volume depletion, unspecified; D64.9 Anemia, unspecified; I25.2 Old myocardial infarction; Z79.84 Long term (current) use of oral hypoglycemic drugs; Z87.891 Personal history of nicotine dependence
CPT/HCPCS: J1650